=== PATIENT | female | born 1950 | race Caucasian/White ===

== ENCOUNTER 2025-04-22 16:59 | Inpatient (IN) | payer MEDICARE, OTHER ==
[~2025-04-22] VITALS: Ht 165.1 cm; Wt 71.2 kg
[2025-04-22] MEDS ORDERED: ACETAMINOPHEN 650 MG/SUPP.RECT RC ONE (17:38)
[2025-04-22 17:40] LABS: PLATELET COUNT (AUTO) 340 K/uL (150-450); RED BLOOD CELL COUNT(AUTO) 4.36 MIL/uL (4.0-5.2); RED CELL DISTRIBUTION WIDTH 16.3 % (11.5-15.0); WHITE BLOOD COUNT (AUTO) 10.9 K/uL (4.3-11.0)
[2025-04-22 17:52] LABS: CALCIUM, SERUM 8.9 mg/dL (8.5-10.1); CREATININE 1.9 mg/dL (0.6-1.3); SODIUM SERUM 147 mmol/L (136-145); UREA NITROGEN, BLOOD 72 mg/dL (7-18)
[2025-04-22 17:53] LABS: INR 1.23 (0.91-1.10)
[2025-04-22 18:00] LABS: LACTIC ACID 3.7 mmol/L (0.4-2.0)
[2025-04-22] MEDS: ACETAMINOPHEN 650 MG/SUPP.RECT RC ONE (18:02)
[2025-04-22 18:05] LABS: ASPARTATE AMINOTRANSFERASE 25 U/L (15-37); TOTAL PROTEIN, SERUM 6.8 g/dL (6.4-8.2)
[2025-04-22] MEDS: IV NS 0.9% 500 ML BAG IV ONE ×2 (18:15→19:49)
[2025-04-22] MEDS ORDERED: ACET-637 PO (18:27)
[2025-04-22] MEDS ORDERED: INSU100I30 SQ (18:27)
[2025-04-22] MEDS ORDERED: MAGN400O6 PO (18:27)
[2025-04-22] MEDS ORDERED: OMEP20CA15 PO (18:27)
[2025-04-22] MEDS ORDERED: POTA-10 PO (18:27)
[2025-04-22] MEDS ORDERED: ASCO-352 PO (18:27)
[2025-04-22] MEDS ORDERED: ACET-868 PO (18:27)
[2025-04-22] MEDS ORDERED: NA P133E RC (18:27)
[2025-04-22] MEDS ORDERED: NORT75CA PO (18:27)
[2025-04-22] MEDS ORDERED: APIX2.5T PO (18:27)
[2025-04-22] MEDS ORDERED: INSU100I4 SQ (18:27)
[2025-04-22] MEDS ORDERED: BISA10SU11 RC (18:27)
[2025-04-22] MEDS ORDERED: SENN8.6T19 PO (18:27)
[2025-04-22] MEDS ORDERED: ACET-2030 PO (18:27)
[2025-04-22] MEDS ORDERED: TYL2T MC (18:27)
[2025-04-22 18:41] LABS: APPEARANCE,URINE CLEAR (CLEAR); BLOOD, URINE Large Ery/uL (NEGATIVE); LEUKOCYTE ESTERASE ,URINE Trace (NEGATIVE); UGLUCOSE Negative (NEGATIVE)
[2025-04-22 18:43] LABS: NITRITE, URINE NEGATIVE (NEGATIVE)
[2025-04-22 18:44] LABS: ADD URINE CULTURE YES; SQUAMOUS EPITHELIAL CELL,UR Few /HPF (None Seen)
[2025-04-22] MEDS: MORPHINE SULFATE INJ 2 MG/ML DISP.SYRIN IV ONE (19:00)
[2025-04-22] MEDS ORDERED: VANCOMYCIN 1 GM /D5W 250 ML PB IV ONE (19:39)
[2025-04-22] MEDS ORDERED: PIPERACI/TAZO 3.375GM/D5W 50ML PB IV ONE (19:39)
[2025-04-22] MEDS: PIPERACILLIN /TAZOBACTAM 3.375 G in IV D5W 50 ML IV ONE (19:49)
[2025-04-22] MEDS: INSULIN REGULAR, HUMAN 100 UNIT/ML 10 ML VIAL IV ONE (19:53)
[2025-04-22 20:20] LABS: FLOW, VBG 15.00 L/min (0.00-30.00); SITE, VBG LEFT BRACHIAL; VBG BASE EXCESS -10.4 mmol/L (-2.0-3.0); VBG HCO3 13.2 mmol/L (22.0-29.0); VBG MetHb 0.2 % (0.5-1.5); VBG OXYGEN SATURATION 99.3 % (60.0-85.0); VBG PCO2 23.9 mmHg (38.0-54.0); VBG PH 7.360 (7.320-7.430); VBG PO2 292.8 mmHg (23.0-48.0); VBG TOTAL HEMOGLOBIN 12.9 G/dL (12.0-16.0)
[2025-04-22] MEDS: VANCOMYCIN 1 GM in IV D5W 250 ML IV ONE (20:20)
[2025-04-22] MEDS: IV NS 0.9% 1,000 ML BAG IV ONE (21:09)
[2025-04-22] MEDS ORDERED: DOSING PER PHARMACY-ZOSYN IV 1 EA EA XX PRN (21:30)
[2025-04-22] MEDS ORDERED: ONDANSETRON HCL/PF 4 MG/2 ML VIAL IVP PRN (21:30)
[2025-04-22] MEDS ORDERED: Z GUARD REMEDY 4 OZ OINT TP PRN (21:30)
[2025-04-22] MEDS ORDERED: MAGNESIUM HYDROXIDE 30 ML UDC PO PRN (21:30)
[2025-04-22] MEDS ORDERED: DEXTROSE 50%-WATER 50 ML DISP.SYRIN IV PRN (21:30)
[2025-04-22] MEDS ORDERED: ACETAMINOPHEN 325 MG TABLET PO PRN (21:30)
[2025-04-22] MEDS ORDERED: MAG HYDROX/AL HYDROX/SIMETH 30 ML UDC PO PRN (21:30)
[2025-04-22] MEDS ORDERED: DOSING PER PHARMACY-VANCOMYCIN IV XX PRN (21:30)
[2025-04-22] MEDS: SENNOSIDES 8.6 MG TABLET PO SCH (22:00)
[2025-04-22] MEDS: BLOOD SUGAR DIAGNOSTIC 1 EACH STRIP IN SCH (22:00)
[2025-04-22] MEDS ORDERED: AMIODARONE 150 MG/3 ML VIAL IV ONE ×2 (23:03→23:35)
[2025-04-22] MEDS: AMIODARONE 150 MG in IV D5W 100 ML IV ONE (23:22)
[2025-04-22] MEDS: NORTRIPTYLINE HCL 25 MG CAPSULE PO SCH (23:59)
[2025-04-23] VITALS (50 sets, daily range): BP systolic 79–131; BP diastolic 60–100; TEMP 97.7–98; O2SAT 70–100
[2025-04-23] MEDS ORDERED: ENOXAPARIN SODIUM 30 MG/0.3 ML DISP.SYRIN ONE (00:05)
[2025-04-23] MEDS: ENOXAPARIN SODIUM 30 MG/0.3 ML DISP.SYRIN SQ SCH (00:14)
[2025-04-23] MEDS: AMIODARONE 450 MG in IV D5W 241 ML IV PRN (00:15)
[2025-04-23] MEDS ORDERED: PIPERACI/TAZO 3.375GM/D5W 50ML PB IV ONE (04:02)
[2025-04-23] MEDS: ZOSYN IVPB 3.375 G in IV D5W 50ml IV ONE (04:05)
[2025-04-23 06:53] LABS: PLATELET COUNT (AUTO) 307 K/uL (150-450); RED BLOOD CELL COUNT(AUTO) 4.39 MIL/uL (4.0-5.2); RED CELL DISTRIBUTION WIDTH 18.0 % (11.5-15.0); WHITE BLOOD COUNT (AUTO) 11.0 K/uL (4.3-11.0)
[2025-04-23 08:10] LABS: ASPARTATE AMINOTRANSFERASE 68.0 U/L (15-37); CALCIUM, SERUM 8.4 mg/dL (8.5-10.1); CREATININE 2.3 mg/dL (0.6-1.3); PHOSPHORUS 6.0 mg/dL (2.5-4.9); SODIUM SERUM 146.0 mmol/L (136-145); TOTAL PROTEIN, SERUM 6.2 g/dL (6.4-8.2); UREA NITROGEN, BLOOD 76.0 mg/dL (7-18)
[2025-04-23 09:16] LABS: LACTIC ACID 8.0 mmol/L (0.4-2.0)
[2025-04-23 09:35] LABS: ABG BASE EXCESS -16.5 mmol/L (-2.0-3.0); ABG OXYGEN SATURATION 99.4 % (94.0-98.0); ABG PCO2 13.8 mmHg (32.0-45.0); ABG PH 7.308 (7.350-7.450); ABG PO2 192.2 mmHg (83.0-108.0); ABG TOTAL HEMOGLOBIN 14.4 G/dL (12.0-16.0); FRACTIONATED INSPIRED OXYGEN 60.0 %; SITE, ABG RIGHT RADIAL
[2025-04-23] MEDS ORDERED: IV NS 0.9% 1,000 ML IV PRN (10:00)
[2025-04-23] MEDS: SODIUM BICARBONATE SYR 50 MEQ/50 ML DISP.SYRIN IV ONE (10:45)
[2025-04-23] MEDS: Sodium Bicarbonate 150 MEQ in IV D5W 1,000 ML IV SCH (10:45)
[2025-04-23] MEDS: PANTOPRAZOLE 40 MG VIAL IV SCH (11:26)
[2025-04-23] MEDS: ZOSYN IVPB 3.375 G in IV D5W 50ml IV SCH (11:34)
[2025-04-23] MEDS: VANCOMYCIN 500 MG in IV D5W 100ml IV ONE (11:46)
[2025-04-23] MEDS: INSULIN GLARGINE, 100 UNIT/ML CARTRIDGE SQ SCH (11:56)
[2025-04-23] MEDS: INSULIN REGULAR, HUMAN 100 UNIT/ML 10 ML VIAL SQ PRN (12:13)
[2025-04-23 13:06] LABS: ABG BASE EXCESS -10.3 mmol/L (-2.0-3.0); ABG OXYGEN SATURATION 99.1 % (94.0-98.0); ABG PCO2 22.0 mmHg (32.0-45.0); ABG PH 7.378 (7.350-7.450); ABG PO2 180.3 mmHg (83.0-108.0); ABG TOTAL HEMOGLOBIN 13.9 G/dL (12.0-16.0); FLOW, BLOOD GAS 8.00 L/min (0.00-30.00); FRACTIONATED INSPIRED OXYGEN 52.0 %; SITE, ABG RIGHT RADIAL
[2025-04-24] VITALS (73 sets, daily range): BP systolic 68–141; BP diastolic 45–104; TEMP 97.6–98; O2SAT 84–100
[2025-04-24 04:37] LABS: PLATELET COUNT (AUTO) 252 K/uL (150-450); RED BLOOD CELL COUNT(AUTO) 4.09 MIL/uL (4.0-5.2); RED CELL DISTRIBUTION WIDTH 16.5 % (11.5-15.0); WHITE BLOOD COUNT (AUTO) 12.5 K/uL (4.3-11.0)
[2025-04-24] MEDS ORDERED: DEXTROSE 50%-WATER 50 ML DISP.SYRIN IV PRN (05:00)
[2025-04-24 05:02] LABS: ASPARTATE AMINOTRANSFERASE > 1000 U/L (15-37); CALCIUM, SERUM 7.8 mg/dL (8.5-10.1); CREATININE 2.3 mg/dL (0.6-1.3); PHOSPHORUS 4.6 mg/dL (2.5-4.9); SODIUM SERUM 151 mmol/L (136-145); TOTAL PROTEIN, SERUM 5.5 g/dL (6.4-8.2); UREA NITROGEN, BLOOD 79 mg/dL (7-18)
[2025-04-24] MEDS: BLOOD SUGAR DIAGNOSTIC 1 EACH STRIP IN SCH (06:05)
[2025-04-24] MEDS: INSULIN REGULAR, HUMAN 100 UNIT/ML 3 ML VIAL SQ PRN (06:07)
[2025-04-24 07:01] LABS: INR 1.62 (0.91-1.10)
[2025-04-24 07:05] LABS: SERUM AMMONIA < 10 umol/L (11-32)
[2025-04-24 07:19] LABS: ASPARTATE AMINOTRANSFERASE > 1000 U/L (15-37); TOTAL PROTEIN, SERUM 6.1 g/dL (6.4-8.2)
[2025-04-24 07:56] LABS: ABG BASE EXCESS 2.4 mmol/L (-2.0-3.0); ABG OXYGEN SATURATION 98.0 % (94.0-98.0); ABG PCO2 39.6 mmHg (32.0-45.0); ABG PH 7.445 (7.350-7.450); ABG PO2 114.2 mmHg (83.0-108.0); ABG TOTAL HEMOGLOBIN 13.7 G/dL (12.0-16.0); FLOW, BLOOD GAS 6.00 L/min (0.00-30.00); SITE, ABG RIGHT RADIAL
[2025-04-24 07:57] LABS: LACTIC ACID 5.0 mmol/L (0.4-2.0)
[2025-04-24] MEDS ORDERED: IV D5/ 0.9% NACL 1,000 ML IV PRN (11:00)
[2025-04-24] MEDS ORDERED: IV D5/0.45 NACL 1,000 ML IV PRN (11:00)
[2025-04-24] MEDS ORDERED: DOBUTamine 500 MG in IV D5W 210 ML IV PRN (12:00)
[2025-04-24] MEDS: DOBUTamine 500 MG in IV D5W 210 ML IV SCH (12:56)
[2025-04-24] MEDS: PIPERACILLIN /TAZOBACTAM 3.375 G in IV D5W 100 ML IV SCH (17:51)
[2025-04-24] MEDS: MEROPENEM 500 MG in IV NS 0.9% 50 ML IV SCH (22:14)
[2025-04-24] MEDS: MEROPENEM 500MG/NS 50 ML PB IV ONE (22:16)
[2025-04-25] VITALS (85 sets, daily range): BP systolic 101–146; BP diastolic 49–95; TEMP 97–97.7; O2SAT 97–100
[2025-04-25] MEDS: HEPARIN SODIUM, PORCINE 5000 UNITS/1 ML VIAL SQ SCH (08:25)
[2025-04-25] MEDS ORDERED: VANCOMYCIN 1 GM in IV D5W 250ml IV SCH (09:00)
[2025-04-25 10:13] LABS: PLATELET COUNT (AUTO) 164 K/uL (150-450); RED BLOOD CELL COUNT(AUTO) 3.94 MIL/uL (4.0-5.2); RED CELL DISTRIBUTION WIDTH 16.5 % (11.5-15.0); WHITE BLOOD COUNT (AUTO) 9.7 K/uL (4.3-11.0)
[2025-04-25 10:55] LABS: ASPARTATE AMINOTRANSFERASE 375.0 U/L (15-37); CALCIUM, SERUM 7.3 mg/dL (8.5-10.1); CREATININE 1.5 mg/dL (0.6-1.3); PHOSPHORUS 3.2 mg/dL (2.5-4.9); SODIUM SERUM 151.0 mmol/L (136-145); TOTAL PROTEIN, SERUM 5.0 g/dL (6.4-8.2); UREA NITROGEN, BLOOD 61.0 mg/dL (7-18)
[2025-04-25 10:56] LABS: CREATINE KINASE, TOTAL 73.0 U/L (26-192)
[2025-04-25] MEDS: VANCOMYCIN 1 GM in IV D5W 250ml IV SCH (12:19)
[2025-04-26] VITALS (51 sets, daily range): BP systolic 104–153; BP diastolic 59–102; TEMP 97.3–98; O2SAT 96–100
[2025-04-26 05:32] LABS: CALCIUM, SERUM 7.8 mg/dL (8.5-10.1); CREATININE 1.4 mg/dL (0.6-1.3); SODIUM SERUM 151.0 mmol/L (136-145); UREA NITROGEN, BLOOD 45.0 mg/dL (7-18)
[2025-04-26] MEDS: POTASSIUM CL. PREMIX PERIPHER. 50 ML IV SCH ×2 (06:34→11:19)
[2025-04-26 09:09] LABS: PTH, INTACT 80 pg/mL (15-65)
[2025-04-26 11:53] LABS: ASPARTATE AMINOTRANSFERASE 448.0 U/L (15-37); TOTAL PROTEIN, SERUM 5.2 g/dL (6.4-8.2)
[2025-04-26 16:58] LABS: CALCIUM, SERUM 8.0 mg/dL (8.5-10.1); CREATININE 1.0 mg/dL (0.6-1.3); SODIUM SERUM 151.0 mmol/L (136-145); UREA NITROGEN, BLOOD 40.0 mg/dL (7-18)
[2025-04-26] MEDS: MEROPENEM 500MG/NS 50 ML PB IV ONE (21:55)
[2025-04-27] VITALS: BP 134/77; TEMP 97.9; O2SAT 99
[2025-04-27] MEDS: VANCOMYCIN 1 GM in IV D5W 250ml IV SCH (00:30)
[2025-04-27 01:05] LABS: APPEARANCE,URINE CLEAR (CLEAR); BLOOD, URINE 2+ Ery/uL (NEGATIVE); LEUKOCYTE ESTERASE ,URINE NEGATIVE (NEGATIVE); NITRITE, URINE NEGATIVE (NEGATIVE); UGLUCOSE TRACE mg/dL (NEGATIVE)
[2025-04-27 01:11] LABS: CREATININE, URINE 149.2 MG/DL (30.0-125.0); URINE TOTAL PROTEIN 103.1 mg/dL (0-11.9)
[2025-04-27 01:31] LABS: ADD URINE CULTURE NO; SQUAMOUS EPITHELIAL CELL,UR 0-2 /HPF (None Seen)
[2025-04-27 02:50] LABS: EOSINOPHIL,URINE None Seen
[2025-04-27 04:00] VITALS: BP 117/101; TEMP 97.9; O2SAT 99
[2025-04-27 07:07] LABS: CALCIUM, SERUM 8.4 mg/dL (8.5-10.1); CREATININE 1.1 mg/dL (0.6-1.3); SODIUM SERUM 150.0 mmol/L (136-145); UREA NITROGEN, BLOOD 36.0 mg/dL (7-18)
[2025-04-27 08:00] VITALS: BP 143/95; TEMP 97.4; O2SAT 100
[2025-04-27] MEDS: POTASSIUM CHLORIDE 20 MEQ TAB.PRT.SR PO SCH (09:36)
[2025-04-27] MEDS: PANTOPRAZOLE 40 MG TABLET.DR PO SCH (09:37)
[2025-04-27 12:00] VITALS: BP 139/71; TEMP 97.8; O2SAT 94
[2025-04-27] MEDS: DIGOXIN INJ 0.5 MG/2 ML AMPUL IV SCH (12:39)
[2025-04-27 16:00] VITALS: BP 142/72; TEMP 98.1; O2SAT 94
[2025-04-27 20:00] VITALS: BP 152/83; TEMP 97.3; O2SAT 95
[2025-04-28] VITALS: BP 142/87; TEMP 97.2; O2SAT 97
[2025-04-28] MEDS ORDERED: VANCOMYCIN 1 GM in IV D5W 250ml IV SCH
[2025-04-28 04:00] VITALS: BP 146/64; TEMP 98.7; O2SAT 97
[2025-04-28 07:14] LABS: CALCIUM, SERUM 8.3 mg/dL (8.5-10.1); CREATININE 0.9 mg/dL (0.6-1.3); SODIUM SERUM 152.0 mmol/L (136-145); UREA NITROGEN, BLOOD 32.0 mg/dL (7-18)
[2025-04-28 08:00] VITALS: BP 140/60; TEMP 98.1; O2SAT 97
[2025-04-28] MEDS: IV D5W 1,000 ML IV SCH (11:26)
[2025-04-28 12:00] VITALS: BP 148/54; TEMP 98.1; O2SAT 97
[2025-04-28 16:00] VITALS: BP 159/83; TEMP 98.6; O2SAT 96
[2025-04-28 20:00] VITALS: BP 147/75; TEMP 97; O2SAT 96
[2025-04-29] VITALS: BP_SYST 129; BP_SYST 150; BP_DIAS 57; BP_DIAS 76; TEMP 97; TEMP 97.3; O2SAT 96; O2SAT 98
[2025-04-29 04:00] VITALS: BP 146/99; TEMP 97.4; O2SAT 98
[2025-04-29 06:32] LABS: PLATELET COUNT (AUTO) 194 K/uL (150-450); RED BLOOD CELL COUNT(AUTO) 4.34 MIL/uL (4.0-5.2); RED CELL DISTRIBUTION WIDTH 15.4 % (11.5-15.0); WHITE BLOOD COUNT (AUTO) 8.6 K/uL (4.3-11.0)
[2025-04-29 07:07] LABS: ASPARTATE AMINOTRANSFERASE 111.0 U/L (15-37); CALCIUM, SERUM 7.7 mg/dL (8.5-10.1); CREATININE 0.7 mg/dL (0.6-1.3); PHOSPHORUS 1.5 mg/dL (2.5-4.9); TOTAL PROTEIN, SERUM 5.3 g/dL (6.4-8.2); UREA NITROGEN, BLOOD 20.0 mg/dL (7-18)
[2025-04-29 07:29] LABS: SODIUM SERUM 143.0 mmol/L (136-145)
[2025-04-29 08:20] VITALS: BP 158/93; TEMP 97.1; O2SAT 97
[2025-04-29] MEDS: POTASSIUM CL. PREMIX PERIPHER. 50 ML IV SCH (09:32)
[2025-04-29 12:10] VITALS: BP 132/81; TEMP 97.6; O2SAT 96
[2025-04-29] MEDS: POTASSIUM CHLORIDE 20 MEQ TAB.PRT.SR PO ONE (13:28)
[2025-04-29] MEDS: POTASSIUM PHOSPHATE MM 7.5 MMOL in IV NS 0.9% 100 ML IV SCH (14:24)
[2025-04-29 16:00] VITALS: BP 142/95; TEMP 98.6; O2SAT 96
[2025-04-29] MEDS: GLUCERNA SHAKE 237 ML CAN PO SCH (17:25)
[2025-04-29 20:00] VITALS: BP 106/91; TEMP 97.9; O2SAT 95
[2025-04-30] VITALS: BP 137/79; TEMP 97.2; O2SAT 97
[2025-04-30 04:00] VITALS: BP 144/91; TEMP 97.2; O2SAT 97
[2025-04-30 06:46] LABS: CALCIUM, SERUM 7.7 mg/dL (8.5-10.1); CREATININE 0.6 mg/dL (0.6-1.3); UREA NITROGEN, BLOOD 16.0 mg/dL (7-18)
[2025-04-30 06:57] LABS: SODIUM SERUM 138.0 mmol/L (136-145)
[2025-04-30 08:00] VITALS: BP 148/96; TEMP 97.7; O2SAT 97
[2025-04-30] MEDS: POTASSIUM CL. PREMIX PERIPHER. 50 ML IV SCH (08:49)
[2025-04-30] MEDS: SPIRONOLACTONE 25 MG TABLET PO SCH (10:00)
[2025-04-30] MEDS: CARVEDILOL 6.25 MG TABLET PO SCH (10:00)
[2025-04-30 12:00] VITALS: BP 118/71; TEMP 98.2; O2SAT 97
[2025-04-30] MEDS ORDERED: CARV6.252 PO (14:43)
[2025-04-30] MEDS ORDERED: SPIR25TA6 PO (14:43)
[2025-04-30] MEDS ORDERED: MERO500V23 IV (14:43)
[2025-04-30 16:00] VITALS: BP 122/64; TEMP 97.7; O2SAT 97
[2025-04-30] MEDS: POTASSIUM CHLORIDE 20 MEQ TAB.PRT.SR PO ONE (16:00)
[2025-04-30 17:11] VITALS: BP 122/64
== END 2025-04-30 19:01 | DRG 871 ==
LOC: ER 17:02 → TELE IN 23:06 → TELE-TD 04-23 07:47 → ICU 04-23 10:04 → TELE-TD 04-26 14:10 → TELE1 04-28 10:36
PROVIDERS: ATTEND Nurse Practitioner Acute Care
PROC: 05H933Z Insertion of Infusion Device into Right Brachial Vein, Percutaneous Approach (ICD-10-PCS; principal; 2025-04-24)
DX: A41.9 Sepsis, unspecified organism (principal); G92.8 Other toxic encephalopathy; I50.23 Acute on chronic systolic (congestive) heart failure; J15.69 Pneumonia due to other Gram-negative bacteria; J96.01 Acute respiratory failure with hypoxia; K72.00 Acute and subacute hepatic failure without coma; N17.0 Acute kidney failure with tubular necrosis; I48.92 Unspecified atrial flutter; I13.0 Hypertensive heart and chronic kidney disease with heart failure and stage 1 through stage 4 chronic kidney disease, or unspecified chronic kidney disease; N39.0 Urinary tract infection, site not specified; D68.59 Other primary thrombophilia; E44.1 Mild protein-calorie malnutrition; F01.53 Vascular dementia, unspecified severity, with mood disturbance; F01.54 Vascular dementia, unspecified severity, with anxiety; I42.9 Cardiomyopathy, unspecified; E87.0 Hyperosmolality and hypernatremia; M84.452A Pathological fracture, left femur, initial encounter for fracture; M84.422A Pathological fracture, left humerus, initial encounter for fracture; R18.8 Other ascites; E87.4 Mixed disorder of acid-base balance; Z20.822 Contact with and (suspected) exposure to COVID-19; Z87.81 Personal history of (healed) traumatic fracture; E11.22 Type 2 diabetes mellitus with diabetic chronic kidney disease; E11.51 Type 2 diabetes mellitus with diabetic peripheral angiopathy without gangrene; I25.10 Atherosclerotic heart disease of native coronary artery without angina pectoris; N18.9 Chronic kidney disease, unspecified; Y95 Nosocomial condition; B96.89 Other specified bacterial agents as the cause of diseases classified elsewhere; F32.A Depression, unspecified; B96.20 Unspecified Escherichia coli [E. coli] as the cause of diseases classified elsewhere; I48.91 Unspecified atrial fibrillation; Z79.4 Long term (current) use of insulin; Z79.01 Long term (current) use of anticoagulants; Z79.899 Other long term (current) drug therapy; K76.0 Fatty (change of) liver, not elsewhere classified; K80.20 Calculus of gallbladder without cholecystitis without obstruction; E87.5 Hyperkalemia; E80.6 Other disorders of bilirubin metabolism; Z74.01 Bed confinement status; Z91.81 History of falling; E86.0 Dehydration; Z89.412 Acquired absence of left great toe; E88.09 Other disorders of plasma-protein metabolism, not elsewhere classified; F09 Unspecified mental disorder due to known physiological condition; F41.9 Anxiety disorder, unspecified
CPT/HCPCS: 36410; 36415; 36600; 71045-TC; 73030-TC; 73502; 76700-TC; 76770-TC; 78226; 80048-TC; 80053-TC; 80076-TC; 80202-TC; 81001; 82010-TC; 82140-TC; 82550-TC; 82570-TC; 82803-TC; 82962-TC; 83605-TC; 83735-TC; 83970; 84100-TC; 84155; 84165; 84300-TC; 84443-TC; 84484-TC; 85025-TC; 85610-TC; 85730-TC; 87040-TC; 87086-TC; 87186-TC; 92526; 92611; 93307-TC; 93970-TC; 94799-TC; A4223; A9537; G0378; J0282; J1160; J1250; J1644; J1650; J1815; J2185; J2270; J2470; J2543; J3373; J3480; J3490; J7030; J7040; J7050; J7060; J7070

== ENCOUNTER 2025-05-20 12:43 | Inpatient (IN) | payer MEDICARE, OTHER ==
[~2025-05-20] VITALS: Ht 170.2 cm; Wt 68.0 kg
[2025-05-20] VITALS (14 sets, daily range): BP systolic 97–130; BP diastolic 61–82; TEMP 98.3–98.6; O2SAT 99–100
[~2025-05-20 12:43] MED LIST: ACET-2030 PO; ACET-868 PO; APIX2.5T PO; ASCO-352 PO; BISA10SU11 RC; CARV6.252 PO; INSU100I30 SQ; INSU100I4 SQ; MAGN400O6 PO; MERO500V23 IV; NA P133E RC; NORT75CA PO; OMEP20CA15 PO; POTA-10 PO; SENN8.6T19 PO; SPIR25TA6 PO
[2025-05-20] MEDS: IV NS 0.9% 1,000 ML BAG IV ONE (13:20)
[2025-05-20 13:28] LABS: PLATELET COUNT (AUTO) 526 K/uL (150-450); RED BLOOD CELL COUNT(AUTO) 4.38 MIL/uL (4.0-5.2); RED CELL DISTRIBUTION WIDTH 16.0 % (11.5-15.0); WHITE BLOOD COUNT (AUTO) 13.4 K/uL (4.3-11.0)
[2025-05-20] MEDS: PIPERACILLIN /TAZOBACTAM 3.375 G in IV D5W 50 ML IV ONE (13:40)
[2025-05-20 13:45] LABS: CALCIUM, SERUM 8.0 mg/dL (8.5-10.1); CREATININE 2.4 mg/dL (0.6-1.3); SODIUM SERUM 138 mmol/L (136-145); UREA NITROGEN, BLOOD 59 mg/dL (7-18)
[2025-05-20 13:46] LABS: INR 1.34 (0.91-1.10)
[2025-05-20 13:50] LABS: ASPARTATE AMINOTRANSFERASE 17 U/L (15-37); TOTAL PROTEIN, SERUM 6.1 g/dL (6.4-8.2)
[2025-05-20 13:54] LABS: LACTIC ACID 6.7 mmol/L (0.4-2.0)
[2025-05-20] MEDS: VANCOMYCIN 1 GM in IV D5W 250 ML IV ONE (14:05)
[2025-05-20 14:41] LABS: APPEARANCE,URINE SLIGHTLY CLOUDY (CLEAR); BLOOD, URINE 3+ Ery/uL (NEGATIVE); LEUKOCYTE ESTERASE ,URINE TRACE (NEGATIVE); NITRITE, URINE POSITIVE (NEGATIVE); UGLUCOSE TRACE mg/dL (NEGATIVE)
[2025-05-20 14:50] LABS: ADD URINE CULTURE YES; COARSE GRANULAR CASTS,URINE Few /LPF (None Seen); SQUAMOUS EPITHELIAL CELL,UR Few /HPF (None Seen)
[2025-05-20] MEDS ORDERED: ACETAMINOPHEN 325 MG TABLET PO PRN (17:00)
[2025-05-20] MEDS ORDERED: DOSING PER PHARMACY-VANCOMYCIN IV XX PRN (17:00)
[2025-05-20] MEDS ORDERED: MAGNESIUM HYDROXIDE 30 ML UDC PO PRN (17:00)
[2025-05-20] MEDS ORDERED: ONDANSETRON HCL/PF 4 MG/2 ML VIAL IVP PRN (17:00)
[2025-05-20] MEDS ORDERED: MAG HYDROX/AL HYDROX/SIMETH 30 ML UDC PO PRN (17:00)
[2025-05-20] MEDS: AMIODARONE 150 MG in IV D5W 100 ML IV ONE (18:16)
[2025-05-20] MEDS: AMIODARONE 450 MG in IV D5W 241 ML IV PRN (18:17)
[2025-05-20] MEDS ORDERED: DEXTROSE 50%-WATER 50 ML DISP.SYRIN IV PRN (18:30)
[2025-05-20] MEDS: HEPARIN SODIUM, PORCINE 5000 UNITS/1 ML VIAL SQ SCH (20:36)
[2025-05-20] MEDS: MEROPENEM 500 MG in IV NS 0.9% 50 ML IV SCH (20:44)
[2025-05-20] MEDS ORDERED: IV NS 0.9% 250 ML IV PRN (21:00)
[2025-05-20] MEDS ORDERED: PIPERACILLIN /TAZOBACTAM 3.375 G in IV D5W 50 ML IV SCH (21:00)
[2025-05-20] MEDS ORDERED: ZOSYN IVPB 3.375 G in IV D5W 50ml IV SCH (21:00)
[2025-05-20] MEDS: BLOOD SUGAR DIAGNOSTIC 1 EACH STRIP IN SCH (22:24)
[2025-05-20] MEDS: INSULIN REGULAR, HUMAN 100 UNIT/ML 3 ML VIAL SQ PRN (22:25)
[2025-05-21] VITALS (42 sets, daily range): BP systolic 104–136; BP diastolic 50–89; TEMP 97.7–98.7; O2SAT 94–100
[2025-05-21 05:07] LABS: PLATELET COUNT (AUTO) 395 K/uL (150-450); RED BLOOD CELL COUNT(AUTO) 3.80 MIL/uL (4.0-5.2); RED CELL DISTRIBUTION WIDTH 15.8 % (11.5-15.0); WHITE BLOOD COUNT (AUTO) 10.5 K/uL (4.3-11.0)
[2025-05-21 05:23] LABS: ASPARTATE AMINOTRANSFERASE 15.0 U/L (15-37); CALCIUM, SERUM 7.2 mg/dL (8.5-10.1); CREATININE 2.1 mg/dL (0.6-1.3); PHOSPHORUS 5.2 mg/dL (2.5-4.9); SODIUM SERUM 137.0 mmol/L (136-145); TOTAL PROTEIN, SERUM 5.1 g/dL (6.4-8.2); UREA NITROGEN, BLOOD 65.0 mg/dL (7-18)
[2025-05-21] MEDS: PANTOPRAZOLE 40 MG VIAL IV SCH (08:45)
[2025-05-22] VITALS (24 sets, daily range): BP systolic 116–151; BP diastolic 53–87; TEMP 98–98.3; O2SAT 71–100
[2025-05-22] MEDS ORDERED: VANCOMYCIN 1 GM in IV D5W 250ml IV SCH ×2 (02:00→14:00)
[2025-05-22 05:55] LABS: CALCIUM, SERUM 7.3 mg/dL (8.5-10.1); CREATININE 1.6 mg/dL (0.6-1.3); PHOSPHORUS 3.6 mg/dL (2.5-4.9); SODIUM SERUM 140.0 mmol/L (136-145); UREA NITROGEN, BLOOD 57.0 mg/dL (7-18)
[2025-05-22 09:34] LABS: PLATELET COUNT (AUTO) 305 K/uL (150-450); RED BLOOD CELL COUNT(AUTO) 3.74 MIL/uL (4.0-5.2); RED CELL DISTRIBUTION WIDTH 17.8 % (11.5-15.0); WHITE BLOOD COUNT (AUTO) 11.1 K/uL (4.3-11.0)
[2025-05-22] MEDS: IV D5/0.45 NACL 500 ML IV ONE (14:03)
[2025-05-22] MEDS: METOPROLOL TARTRATE INJ 5 MG/5 ML AMPUL IVP ONE (18:03)
[2025-05-22] MEDS: AMIODARONE 150 MG in IV D5W 100 ML IV ONE (19:52)
[2025-05-22] MEDS: AMIODARONE 450 MG in IV D5W 241 ML IV PRN (20:08)
[2025-05-23] VITALS (7 sets, daily range): BP systolic 131–147; BP diastolic 73–90; TEMP 98.1–98.6; O2SAT 97–100
[2025-05-23] MEDS: AMIODARONE HCL 200 MG TABLET NG SCH (09:53)
[2025-05-23 10:52] LABS: PLATELET COUNT (AUTO) 357 K/uL (150-450); RED BLOOD CELL COUNT(AUTO) 4.26 MIL/uL (4.0-5.2); RED CELL DISTRIBUTION WIDTH 16.2 % (11.5-15.0); WHITE BLOOD COUNT (AUTO) 11.4 K/uL (4.3-11.0)
[2025-05-23] MEDS: THERAHONEY GEL 1.5 OZ TUBE TP SCH (11:50)
[2025-05-23 13:26] LABS: CALCIUM, SERUM 8.0 mg/dL (8.5-10.1); CREATININE 0.9 mg/dL (0.6-1.3); PHOSPHORUS 1.7 mg/dL (2.5-4.9); SODIUM SERUM 141.0 mmol/L (136-145); UREA NITROGEN, BLOOD 28.0 mg/dL (7-18)
[2025-05-23] MEDS: NEUTRA PHOS 1 POWD.PACKET GT ONE (15:12)
[2025-05-23] MEDS: POTASSIUM CHLORIDE 20 MEQ POWDER PACKET GT SCH (15:12)
[2025-05-23] MEDS ORDERED: DEXTROSE 50%-WATER 50 ML DISP.SYRIN IV PRN (15:30)
[2025-05-23] MEDS: BLOOD SUGAR DIAGNOSTIC 1 EACH STRIP IN SCH (17:28)
[2025-05-23] MEDS: INSULIN REGULAR, HUMAN 100 UNIT/ML 3 ML VIAL SQ PRN (17:29)
[2025-05-23 18:59] LABS: CALCIUM, SERUM 7.5 mg/dL (8.5-10.1); CREATININE 0.8 mg/dL (0.6-1.3); PHOSPHORUS 1.8 mg/dL (2.5-4.9); SODIUM SERUM 143.0 mmol/L (136-145); UREA NITROGEN, BLOOD 24.0 mg/dL (7-18)
[2025-05-23] MEDS: CEFTRIAXONE 1 G in IV D5W 50 ML IV SCH (21:22)
[2025-05-23] MEDS: GLUCERNA 1.2 1,000 ML BOTTLE NG PRN (22:13)
[2025-05-24] VITALS: BP 133/66; TEMP 98.5; O2SAT 95
[2025-05-24 04:00] VITALS: BP 139/66; TEMP 98.7; O2SAT 96
[2025-05-24 08:00] VITALS: BP 132/65; TEMP 97.6; O2SAT 99
[2025-05-24 08:16] LABS: PLATELET COUNT (AUTO) 358 K/uL (150-450); RED BLOOD CELL COUNT(AUTO) 4.25 MIL/uL (4.0-5.2); RED CELL DISTRIBUTION WIDTH 16.3 % (11.5-15.0); WHITE BLOOD COUNT (AUTO) 11.1 K/uL (4.3-11.0)
[2025-05-24 08:31] LABS: CALCIUM, SERUM 7.6 mg/dL (8.5-10.1); CREATININE 0.8 mg/dL (0.6-1.3); PHOSPHORUS 1.7 mg/dL (2.5-4.9); SODIUM SERUM 143.0 mmol/L (136-145); UREA NITROGEN, BLOOD 22.0 mg/dL (7-18)
[2025-05-24] MEDS: THIAMINE HCL 100 MG TABLET GT SCH (08:48)
[2025-05-24] MEDS: AMMONIUM LACTATE 227 GM BOTTLE TP SCH (11:17)
[2025-05-24 12:00] VITALS: BP 134/70; TEMP 98.6; O2SAT 98
[2025-05-24] MEDS: PROSOURCE / PROSTAT (PYXIS) 30 ML UDC GT SCH (12:41)
[2025-05-24 16:00] VITALS: BP 125/79; TEMP 98.1; O2SAT 96
[2025-05-24] MEDS: NEUTRA PHOS 1 POWD.PACKET GT ONE (17:43)
[2025-05-24 17:45] VITALS: BP 134/70
[2025-05-24] MEDS: Z GUARD REMEDY 4 OZ OINT TP PRN (17:58)
[2025-05-25] MEDS ORDERED: PANTOPRAZOLE 40 MG/PACK PACK NG SCH (09:00)
== END 2025-05-24 20:15 | disposition short-term general hospital (02) | DRG 871 ==
LOC: ER 12:58 → ICU 16:34 → TELE-TD 05-22 13:36 → TELE1 05-23 12:02
PROVIDERS: ATTEND Nurse Practitioner Acute Care
DX: A41.9 Sepsis, unspecified organism (principal); E43 Unspecified severe protein-calorie malnutrition; I21.A1 Myocardial infarction type 2; J96.00 Acute respiratory failure, unspecified whether with hypoxia or hypercapnia; K72.00 Acute and subacute hepatic failure without coma; I50.22 Chronic systolic (congestive) heart failure; N17.9 Acute kidney failure, unspecified; I13.0 Hypertensive heart and chronic kidney disease with heart failure and stage 1 through stage 4 chronic kidney disease, or unspecified chronic kidney disease; I48.92 Unspecified atrial flutter; M84.452A Pathological fracture, left femur, initial encounter for fracture; N39.0 Urinary tract infection, site not specified; I42.9 Cardiomyopathy, unspecified; Z16.24 Resistance to multiple antibiotics; E87.20 Acidosis, unspecified; F03.93 Unspecified dementia, unspecified severity, with mood disturbance; F03.94 Unspecified dementia, unspecified severity, with anxiety; G93.40 Encephalopathy, unspecified; R65.20 Severe sepsis without septic shock; Z20.822 Contact with and (suspected) exposure to COVID-19; E11.22 Type 2 diabetes mellitus with diabetic chronic kidney disease; N18.9 Chronic kidney disease, unspecified; E11.51 Type 2 diabetes mellitus with diabetic peripheral angiopathy without gangrene; E11.621 Type 2 diabetes mellitus with foot ulcer; L97.519 Non-pressure chronic ulcer of other part of right foot with unspecified severity; I25.10 Atherosclerotic heart disease of native coronary artery without angina pectoris; I48.91 Unspecified atrial fibrillation; L60.3 Nail dystrophy; I25.2 Old myocardial infarction; Z86.19 Personal history of other infectious and parasitic diseases; R13.10 Dysphagia, unspecified; F32.A Depression, unspecified; Z98.890 Other specified postprocedural states; Z79.4 Long term (current) use of insulin; Z79.01 Long term (current) use of anticoagulants; Z79.899 Other long term (current) drug therapy; B96.89 Other specified bacterial agents as the cause of diseases classified elsewhere; R29.6 Repeated falls; R62.7 Adult failure to thrive; Z74.01 Bed confinement status; Z87.440 Personal history of urinary (tract) infections; Z91.81 History of falling; Z89.412 Acquired absence of left great toe; E80.6 Other disorders of bilirubin metabolism; E87.5 Hyperkalemia; E87.6 Hypokalemia; E88.09 Other disorders of plasma-protein metabolism, not elsewhere classified; D64.9 Anemia, unspecified; E78.5 Hyperlipidemia, unspecified
CPT/HCPCS: 36415; 71045-TC; 80048-TC; 80076-TC; 81001; 82962-TC; 83605-TC; 83735-TC; 84100-TC; 84443-TC; 84484-TC; 85025-TC; 85730-TC; 87040-TC; 87081-TC; 87086-TC; 87186-TC; 92526; 92611; 93307-TC; A4223; A6213; A6403; G0378; J0282; J0696; J1644; J1815; J2185; J2470; J2543; J3373; J3490; J7050; J7060